=== PATIENT | male | born 1975 | race Caucasian/White ===

== ENCOUNTER 2023-02-28 12:31 | Emergency (ER) | payer MEDICAID ==
[2023-02-28 13:20] LABS: BASOPHILS ABSOLUTE AUTO 0.03 10^3/uL (0.00-0.50); BASOPHILS PERCENT AUTO 0.3 % (0-1); EOSINOPHILS ABSOLUTE AUTO 0.15 10^3/uL (0.00-1.50); EOSINOPHILS PERCENT AUTO 1.7 % (0-6); HEMATOCRIT 47.5 % (42.0-52.0); HEMOGLOBIN 16.3 g/dL (14.0-18.0); IMMATURE GRAN ABSOLUTE AUTO 0.17 10^3/uL (0.00-0.49); LYMPHOCYTES ABSOLUTE AUTO 2.64 10^3/uL (0.60-5.00); LYMPHOCYTES PERCENT AUTO 30.8 % (24-44); MEAN CORPUSCULAR HEMOGLOBIN 31.7 pg (27.0-32.0); MEAN CORPUSCULAR HGB CONC 34.3 g/dL (32.0-36.0); MEAN CORPUSCULAR VOLUME 92.4 fL (83.0-97.0); MONOCYTES PERCENT AUTO 5.8 % (0-10); NEUTROPHILS ABSOLUTE AUTO 5.09 x10^3/uL (1.80-8.00); NEUTROPHILS PERCENT AUTO 59.4 % (41-71); PLATELET COUNT,PLT 286 10^3/uL (150-400); RED BLOOD CELL COUNT 5.14 x10^6/uL (4.50-6.00); WHITE BLOOD CELL COUNT,WBC 8.6 10^3/uL (4.0-11.0)
[2023-02-28 13:33] LABS: ALANINE AMINOTRANSFERASE,ALT 38 U/L (12-78); ALBUMIN 3.5 g/dL (3.4-5.0); ALKALINE PHOSPHATASE 70 U/L (46-116); ASPARTATE AMNIOTRANSFERASE,AST 22 U/L (15-37); BILIRUBIN TOTAL 0.3 mg/dL (0.0-1.0); BLOOD UREA NITROGEN,BUN 14 mg/dL (7-18); CALCIUM 8.9 mg/dL (8.4-10.1); CARBON DIOXIDE,CO2 24 mmol/L (21-32); CHLORIDE,CL 103 mEq/L (98-106); EST CRCL DRUG DOSING (CG) 77.73 mL/min; GLUCOSE RANDOM 111 mg/dL (75-99); POTASSIUM,K 4.3 mEq/L (3.5-5.0); PROTEIN TOTAL,TP 6.9 g/dL (6.4-8.2); SODIUM,NA 140 mEq/L (136-145)
[2023-02-28 13:35] LABS: ESTIMATED GFR 92 mL/min (>=60)
[2023-02-28 13:36] LABS: C-REACTIVE PROTEIN < 0.2 mg/dL (0.2-0.8)
[2023-02-28 14:30] LABS: APPEARANCE,URINE CLEAR (CLEAR); BILIRUBIN,URINE NEGATIVE (NEGATIVE); COLOR,URINE YELLOW (YELLOW); GLUCOSE,URINE NEGATIVE (NEGATIVE); KETONES,URINE NEGATIVE (NEGATIVE); LEUKOCYTE ESTERASE,URINE NEGATIVE (NEGATIVE); NITRITE,URINE NEGATIVE (NEGATIVE); OCCULT BLOOD,URINE TRACE-INTACT (NEGATIVE); PH,URINE 5.5 (4.5-8.0); PROTEIN,URINE TRACE mg/dL (NEGATIVE); UROBILINOGEN,URINE 0.2 EU/dL (0.2-1.0)
[2023-02-28 14:32] LABS: AMPHETAMINES,URINE NEGATIVE (NEGATIVE); BARBITURATES,URINE NEGATIVE (NEGATIVE); BENZODIAZEPINE,URINE NEGATIVE (NEGATIVE); MDMA (ECSTASY), URINE NEGATIVE (NEGATIVE); METHADONE,URINE NEGATIVE (NEGATIVE); METHAMPHETAMINES,URINE NEGATIVE (NEGATIVE); OPIATES,URINE NEGATIVE (NEGATIVE); OXYCODONE,URINE NEGATIVE (NEGATIVE); PHENCYCLIDINE,URINE NEGATIVE (NEGATIVE); TCA,URINE NEGATIVE (NEGATIVE)
[2023-02-28 14:41] LABS: RBC,URINE NOT SEEN /HPF (0-5); WBC,URINE NOT SEEN /HPF (0-5)
[2023-02-28] MEDS ORDERED: Divalproex Sodium Delayed-Release 250 MG Tab.CR PO STA (14:41)
[2023-02-28 14:42] LABS: BACTERIA,URINE NOT SEEN /HPF (NOT SEEN); EPITHELIAL CELLS,URINE NOT SEEN /HPF (NOT SEEN); MUCUS,URINE OCCASIONAL /HPF (NOT SEEN)
== END 2023-02-28 16:00 | disposition home or self-care (01) ==
LOC: CC.ED 12:31
DX: R56.9 Unspecified convulsions (principal); Z72.0 Tobacco use; W18.09XA Striking against other object with subsequent fall, initial encounter
CPT/HCPCS: 36415; 70450; 72125; 80053; 80164; 80305-QW; 81001; 85025; 86140; 99284; 99285; A9270-GY

== ENCOUNTER 2023-02-28 16:51 | Observation (INO) | payer MEDICAID ==
[2023-02-28] MEDS ORDERED: Acetaminophen 325 MG Tab PO PRN (17:23)
[2023-02-28] MEDS ORDERED: Ondansetron 4 MG/2 ML SDV IV PRN (17:23)
[2023-02-28] MEDS ORDERED: Ondansetron 4 MG Tab.DIS PO PRN (17:23)
[2023-02-28] MEDS: Divalproex Sodium Delayed-Release 250 MG Tab.CR PO SCH (19:10)
[2023-03-01 07:18] LABS: BASOPHILS ABSOLUTE AUTO 0.03 10^3/uL (0.00-0.50); BASOPHILS PERCENT AUTO 0.3 % (0-1); EOSINOPHILS ABSOLUTE AUTO 0.17 10^3/uL (0.00-1.50); EOSINOPHILS PERCENT AUTO 1.7 % (0-6); HEMATOCRIT 46.5 % (42.0-52.0); HEMOGLOBIN 15.9 g/dL (14.0-18.0); IMMATURE GRAN ABSOLUTE AUTO 0.13 10^3/uL (0.00-0.49); IMMATURE GRAN PERCENT AUTO 1.3 % (0.0-4.9); LYMPHOCYTES PERCENT AUTO 33.5 % (24-44); MEAN CORPUSCULAR HEMOGLOBIN 31.8 pg (27.0-32.0); MEAN CORPUSCULAR HGB CONC 34.2 g/dL (32.0-36.0); MONOCYTES ABSOLUTE AUTO 0.57 10^3/uL (0.00-1.50); MONOCYTES PERCENT AUTO 5.8 % (0-10); NEUTROPHILS ABSOLUTE AUTO 5.65 x10^3/uL (1.80-8.00); NEUTROPHILS PERCENT AUTO 57.4 % (41-71); PLATELET COUNT,PLT 276 10^3/uL (150-400); WHITE BLOOD CELL COUNT,WBC 9.9 10^3/uL (4.0-11.0)
[2023-03-01] MEDS: Divalproex Sodium Delayed-Release 250 MG Tab.CR PO SCH (07:43)
[2023-03-01 07:49] LABS: ALBUMIN 3.3 g/dL (3.4-5.0); BILIRUBIN TOTAL 0.8 mg/dL (0.0-1.0); CALCIUM 8.7 mg/dL (8.4-10.1); CREATININE 1.1 mg/dL (0.7-1.3); EST CRCL DRUG DOSING (CG) 73.31 mL/min; POTASSIUM,K 3.6 mEq/L (3.5-5.0); PROTEIN TOTAL,TP 6.7 g/dL (6.4-8.2)
[2023-03-01] MEDS ORDERED: Enoxaparin 40 MG/0.4 ML Syringe SUBCUT SCH (16:00)
== END 2023-03-01 09:50 | disposition home or self-care (01) ==
LOC: CC.MS 16:51 → UNDOADMOB 16:51 → CC.MS 17:23
PROVIDERS: ADMIT Nurse Practitioner Family; ATTEND Nurse Practitioner Family
DX: G40.909 Epilepsy, unspecified, not intractable, without status epilepticus (principal); F17.210 Nicotine dependence, cigarettes, uncomplicated; W19.XXXA Unspecified fall, initial encounter
CPT/HCPCS: 36415; 80053; 85025; 99223; 99238; A9270-GY; G0378

== ENCOUNTER 2024-11-07 14:21 | Emergency (ER) | payer BC, MEDICAID ==
[2024-11-07 15:18] LABS: BASOPHILS ABSOLUTE AUTO 0.04 10^3/uL (0.00-0.50); BASOPHILS PERCENT AUTO 0.3 % (0-1); EOSINOPHILS ABSOLUTE AUTO 0.01 10^3/uL (0.00-1.50); EOSINOPHILS PERCENT AUTO 0.1 % (0-6); HEMATOCRIT 42.2 % (42.0-52.0); HEMOGLOBIN 14.6 g/dL (14.0-18.0); IMMATURE GRAN ABSOLUTE AUTO 0.09 10^3/uL (0.00-0.49); IMMATURE GRAN PERCENT AUTO 0.6 % (0.0-4.9); LYMPHOCYTES ABSOLUTE AUTO 1.75 10^3/uL (0.60-5.00); MEAN CORPUSCULAR HEMOGLOBIN 31.7 pg (27.0-32.0); MEAN CORPUSCULAR HGB CONC 34.6 g/dL (32.0-36.0); MEAN CORPUSCULAR VOLUME 91.7 fL (83.0-97.0); MONOCYTES ABSOLUTE AUTO 1.05 10^3/uL (0.00-1.50); MONOCYTES PERCENT AUTO 7.2 % (0-10); NEUTROPHILS ABSOLUTE AUTO 11.64 x10^3/uL (1.80-8.00); NEUTROPHILS PERCENT AUTO 79.8 % (41-71); PLATELET COUNT,PLT 145 10^3/uL (150-400); WHITE BLOOD CELL COUNT,WBC 14.6 10^3/uL (4.0-11.0)
[2024-11-07 15:31] LABS: ALBUMIN 3.1 g/dL (3.4-5.0); BILIRUBIN TOTAL 0.6 mg/dL (0.0-1.0); C-REACTIVE PROTEIN 24.19 mg/dL (<=0.50); CALCIUM 8.5 mg/dL (8.4-10.1); CREATININE 1.6 mg/dL (0.7-1.3); EST CRCL DRUG DOSING (CG) 47.51 mL/min; MAGNESIUM 1.8 mg/dL (1.8-2.4); POTASSIUM,K 3.1 mEq/L (3.5-5.0); PROTEIN TOTAL,TP 7.1 g/dL (6.4-8.2)
[2024-11-07] MEDS: Lidocaine 1% with EPINEPHrine 1:100,000 20 ML MDV ONE (15:57)
[2024-11-07] MEDS: Sodium Chloride 0.9% 1,000 ML IV ONE (16:40)
[2024-11-07] MEDS: Potassium Chloride 10 MEQ Tab.ER PO ONE (16:50)
[2024-11-07] MEDS: cefTRIAXone 2 GM Vial IVPUSH ONE (16:55)
== END 2024-11-07 18:30 | disposition left against medical advice (07) ==
LOC: CC.ED 14:21 → UNDOADMIN 16:19 → CC.MS 16:19 → CC.ED 18:30
DX: N17.9 Acute kidney failure, unspecified (principal); L03.115 Cellulitis of right lower limb; R50.9 Fever, unspecified; E87.1 Hypo-osmolality and hyponatremia; E87.6 Hypokalemia; F17.210 Nicotine dependence, cigarettes, uncomplicated; Z79.51 Long term (current) use of inhaled steroids; Z79.899 Other long term (current) drug therapy
CPT/HCPCS: 36415; 71045; 73630-RT; 80053; 83605; 83735; 85025; 86140; 87428-QW; 96361; 96374; 99283-25; 99284; A9270-GY; J0696; J7030